=== PATIENT | male | born 1975 | race American Indian/Alaskan Native ===

== ENCOUNTER 2018-08-24 13:40 | Emergency (ER) | payer SELFPAY ==
[2018-08-24 13:58] VITALS: BP 112/78
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
[2018-08-24 16:01] LABS: Bilirubin,Urine NEG (Negative); Blood,Urine NEG (Negative); Color,Urine Amber (Yellow); Mucus,Urine FEW /HPF; Protein,Urine <15 mg/dL mg/dL (Negative); WBC,Urine < 1.0 /HPF (0.0-6.0)
== END 2018-08-24 18:39 | disposition home or self-care (01) ==
LOC: ED 13:40
DX: N30.00 Acute cystitis without hematuria (principal)
CPT/HCPCS: 81001; 87086